=== PATIENT | female | born 1985 ===

== ENCOUNTER 2022-06-01 07:56 | Outpatient (CLI) | payer OTHER | END 2022-06-01 09:15 | disposition home or self-care (01) | LOC: PRENATAL 07:56 | PROVIDERS: ATTEND Obstetrics & Gynecology Maternal & Fetal Medicine | DX: O36.80X0 Pregnancy with inconclusive fetal viability, not applicable or unspecified (principal); O09.529 Supervision of elderly multigravida, unspecified trimester; O99.280 Endocrine, nutritional and metabolic diseases complicating pregnancy, unspecified trimester; Z3A.12 12 weeks gestation of pregnancy ==

== ENCOUNTER 2022-07-27 08:04 | Outpatient (CLI) | payer OTHER | END 2022-07-27 09:35 | disposition home or self-care (01) | LOC: PRENATAL 08:04 | PROVIDERS: ATTEND Obstetrics & Gynecology Maternal & Fetal Medicine | DX: O35.0XX0 Maternal care for (suspected) central nervous system malformation in fetus, not applicable or unspecified (principal); O35.3XX0 Maternal care for (suspected) damage to fetus from viral disease in mother, not applicable or unspecified; O99.280 Endocrine, nutritional and metabolic diseases complicating pregnancy, unspecified trimester; Z3A.20 20 weeks gestation of pregnancy ==

== ENCOUNTER 2022-08-06 21:34 | Outpatient (CLI) | payer OTHER ==
[~2022-08-06] VITALS: Ht 167.6 cm; Wt 70.8 kg
[2022-08-06] MEDS ORDERED: PRENATAL CAPLE1 EAC1 PO (22:13)
[2022-08-06] MEDS ORDERED: SYNTHROID125 MCG PO (22:13)
[2022-08-06] MEDS ORDERED: SYNTHROID137 MCG PO (22:13)
== END 2022-08-06 22:00 | disposition left against medical advice (07) ==
LOC: OBS/DEL 21:34
PROVIDERS: ATTEND Obstetrics & Gynecology
DX: O26.892 Other specified pregnancy related conditions, second trimester (principal); Z3A.21 21 weeks gestation of pregnancy; R10.2 Pelvic and perineal pain

== ENCOUNTER 2023-02-26 12:30 | Outpatient (CLI) | payer OTHER ==
[~2023-02-26 12:30] MED LIST: PRENATAL CAPLE1 EAC1 PO; SYNTHROID125 MCG PO; SYNTHROID137 MCG PO
== END 2023-02-26 12:38 | disposition home or self-care (01) ==
LOC: SONOGRAMA 12:30
DX: E04.1 Nontoxic single thyroid nodule (principal)